=== PATIENT | male | born 1985 | race American Indian/Alaskan Native ===

== ENCOUNTER 2020-06-25 17:37 | Emergency (ER) | payer SELFPAY ==
[2020-06-25] MEDS ORDERED: IBUPROFEN 600 MG TAB PO ONE (19:32)
[2020-06-25] MEDS ORDERED: DIPHtheria,PERTUSSIS(ACELL),TETANUS VACCINE/PF 0.5 ML VIAL IM ONE (19:32)
--- NOTE | 2020-06-25 20:15 | Emergency Department Report ---
- General Chief Complaint: Puncture Wound Stated Complaint: LFT TOE INJURY/PAIN Time Seen by Provider: 06/25/20 19:31 Source: patient Mode of arrival: Ambulatory Limitations: No Limitations - History of Present Illness Initial Comments: 34-year-old -Chadian male presents to the emergency room for foot injury. Patient states that he was at work and stepped on a nail through his work boots. Patient reports he does not know when the last time he had a tetanus injection. Patient states that it bled quite a bit. Patient reports that it is painful when he walks. Denies any other past medical history. -: This afternoon Extremity Location: Left: Foot Place: work Patient Tetanus UTD: No Context: accidental Associated Symptoms: pain Treatments Prior to Arrival: bandage - Related Data Previous Rx's Medication Instructions Recorded Last Taken Type levoFLOXacin [Levaquin TAB] 500 mg PO QDAY #7 tablet 06/25/20 Unknown Rx Allergies Allergy/AdvReac Type Severity Reaction Status Date / Time No Known Allergies Allergy Unverified 06/25/20 17:50 ED Review of Systems ROS: Stated complaint: LFT TOE INJURY/PAIN Other details as noted in HPI Comment: All other systems reviewed and negative ED Past Medical Hx - Past Medical History Previous Medical History?: No - Surgical History Past Surgical History?: No - Medications Home Medications: Home Medications Medication Instructions Recorded Confirmed Last Taken Type levoFLOXacin [Levaquin TAB] 500 mg PO QDAY #7 tablet 06/25/20 Unknown Rx ED Physical Exam - General Limitations: No Limitations General appearance: alert, in no apparent distress - Head Head exam: Present: atraumatic, normocephalic - Eye Eye exam: Present: normal appearance - ENT ENT exam: Present: mucous membranes moist - Neck Neck exam: Present: normal inspection, full ROM - Expanded Lower Extremity Exam Left Knee exam: Present: normal inspection Lower Leg exam: Present: normal inspection Ankle exam: Present: normal inspection Foot/Toe exam: Present: full ROM, tenderness, swelling Neuro vascular tendon exam: Present: no vascular compromise Gait: Positive: observed and limited by pain - Back Exam Back exam: Present: normal inspection - Neurological Exam Neurological exam: Present: alert, oriented X3 - Psychiatric Psychiatric exam: Present: normal affect, normal mood - Skin Skin exam: Present: other (Puncture wound to left foot no active bleeding) ED Course Vital Signs 06/25/20 17:51 Temperature 98.3 F Pulse Rate 78 Respiratory 20 Rate Blood Pressure 151/93 O2 Sat by Pulse 98 Oximetry ED Medical Decision Making - Radiology Data Radiology results: report reviewed [facility] [address] [place] [address] XRay Report Signed Patient: KACIE BONILLA MR#: [id number] : 1985 Acct:[id number] Age/Sex: 34 / M ADM Date: 06/25/20 Loc: ED Attending Dr: Ordering Physician: ELMIRA POWELL Date of Service: 06/25/20 Procedure(s): XR foot 2V LT Accession Number(s): [id number] cc: ELMIRA POWELL Fluoro Time In Minutes: LEFT FOOT 2 VIEW(S) INDICATION / CLINICAL INFORMATION: stepped on nail COMPARISON: None available. FINDINGS: BONES / JOINT(S): No acute fracture or subluxation. No significant arthritis. SOFT TISSUES: Mild diffuse soft tissue swelling throughout the foot. ADDITIONAL FINDINGS: None. Signer Name: Maria Elena Shearer MD Signed: 06/25/2020 8:11 PM Workstation Name: [id number] Transcribed By: Dictated By: MARIA ELENA SHEARER Electronically Authenticated By: MARIA ELENA SHEARER Signed Date/Time: 06/25/202010 DD/ 09 TD/TT: - Medical Decision Making 34-year-old -[place] male presents to the emergency room for foot injury. Patient states that he was at work and stepped on a nail through his work boots. Patient reports he does not know when the last time he had a tetanus injection. Patient states that it bled quite a bit. Patient reports that it is painful when he walks. Denies any other past medical history. X-ray is negative for any acute abnormalities or foreign body. Patient had his foot soaked in Betadine and warm water. Patient was given a tetanus injection patient be Placed on Levaquin. Fresh bandage in his sock work excuse to the paper Critical care attestation.: If time is entered above; I have spent that time in minutes in the direct care of this critically ill patient, excluding procedure time. ED Disposition Clinical Impression: Puncture wound of foot, left Disposition: DC-01 TO HOME OR SELFCARE Is pt being admited?: No Does the pt Need Aspirin: No Condition: Stable Additional Instructions: X-ray negative for any foreign body or acute abnormality. You have had your tetanus shot. I recommend ibuprofen or Tylenol for pain management. Complete your antibiotics as prescribed. And follow-up with your primary care provider if your symptoms persist or gets worse. Prescriptions: levoFLOXacin [Levaquin TAB] 500 mg PO QDAY #7 tablet Referrals: PRIMARY CARE, [Primary Care Provider] - 3-5 Days Forms: Work/School Release Form(ED)
[2020-06-25 20:40] VITALS: BP 147/89
== END 2020-06-25 20:39 | disposition home or self-care (01) ==
LOC: ED 17:37
DX: S91.332A Puncture wound without foreign body, left foot, initial encounter (principal); X58.XXXA Exposure to other specified factors, initial encounter; Y93.89 Activity, other specified; Y92.89 Other specified places as the place of occurrence of the external cause; Y99.8 Other external cause status
CPT/HCPCS: 90471; 90715

== ENCOUNTER 2020-11-22 12:15 | Emergency (ER) | payer SELFPAY ==
[2020-11-22 13:11] VITALS: BP 135/92
--- NOTE | 2020-11-22 15:37 | Event Note ---
ED Screening Note Date of service: 11/22/20 Time: 15:31 ED Screening Note: 35-year-old -[place] male presents to the emergency room complaining of right upper shoulder and back pain that radiates to his right chest wall. Patient states is been going on for about 2 weeks. Patient reports that he has been to 4 different ERs in all of his exams within normal limits. 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 Patient states he is right-hand dominant. Patient states that ibuprofen 800 mg does not help with his pain. Patient denies any past medical history but does report smoking cigarettes and occasionally alcohol. He is currently on no medications and has no known drug allergies. Patient states that he is constantly falling asleep during the day and night. He reports that his job will let him return to work because he keeps falling asleep. It was noted that patient EKG shows bradycardic at a heart rate of 53. Patient was a DNA at 1405 can see the sleep did not hear his name. Patient appears to be unkept with multiple layers of close Patient appears to be very sleepy and drowsy Right eye has hemorrhage of the sclera Right shoulder blade tenderness This initial assessment/diagnostic orders/clinical plan/treatment(s) is/are subject to change based on patients health status, clinical progression and re- assessment by fellow clinical providers in the ED. Further treatment and workup at subsequent clinical providers discretion. Patient/guardian urged not to elope from the ED as their condition may be serious if not clinically assessed and managed. Initial orders include:
[2020-11-22 16:12] LABS: Basophils # (Auto) 0.1 K/mm3 (0.0-0.1); Basophils % (Auto) 0.9 % (0.0-1.8); Eosinophils # (Auto) 0.4 K/mm3 (0.0-0.4); Eosinophils % (Auto) 5.6 % (0.0-4.3); Hematocrit 45.6 % (35.5-45.6); Hemoglobin 15.3 gm/dl (11.8-15.2); Lymphocytes # (Auto) 2.3 K/mm3 (1.2-5.4); Mean Corpuscular HGB Conc 34 % (32-34); Mean Corpuscular Volume 100 fl (84-94); Monocytes # (Auto) 0.6 K/mm3 (0.0-0.8); Monocytes % (Auto) 9.3 % (0.0-7.3); Platelet Count 307 K/mm3 (140-440); Red Blood Count 4.57 M/mm3 (3.65-5.03); Red Cell Distribution Width 13.1 % (13.2-15.2)
--- NOTE | 2020-11-22 16:36 | XRay Report ---
XR chest routine 2V INDICATION / CLINICAL INFORMATION: Right upper chest wall tenderness. COMPARISON: None available. FINDINGS: SUPPORT DEVICES: None. HEART /PULMONARY VASCULATURE: No significant abnormality. LUNGS / PLEURA: No significant pulmonary or pleural abnormality. No pneumothorax. ADDITIONAL FINDINGS: No significant additional findings. IMPRESSION: 1. No acute findings. Signer Name: Samir Santo MD Signed: 11/22/2020 4:32 PM Workstation Name: [id number]
[2020-11-22 16:48] LABS: Alanine Aminotransferase 23 units/L (7-56); Albumin 3.7 g/dL (3.9-5); BUN/Creatinine Ratio 11; Blood Urea Nitrogen 12 mg/dL (9-20); Calcium 8.3 mg/dL (8.4-10.2); Hemolysis Index 13
--- NOTE | 2020-11-22 18:31 | Emergency Department Report ---
ED General Adult HPI - General Chief complaint: Chest Pain Stated complaint: CHEST PAINS PUI?: No Source: patient Mode of arrival: Ambulatory Limitations: No Limitations - History of Present Illness Initial comments: 35-year-old -Serbian male presents to the emergency room complaining of right upper shoulder and back pain that radiates to his right chest wall. Patient states is been going on for about 2 weeks. Patient reports that he has been to 4 different ERs in all of his exams within normal limits. 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 Patient states he is right-hand dominant. Patient states that ibuprofen 800 mg does not help with his pain. Patient denies any past medical history but does report smoking cigarettes and occasionally alcohol. He is currently on no medications and has no known drug allergies. Patient states that he is constantly falling asleep during the day and night. He reports that his job will let him return to work because he keeps falling asleep. It was noted that patient EKG shows bradycardic at a heart rate of 53. Onset/Timin -: week(s) Location: chest (Right chest), upper extremity (Right shoulder and shoulder blade) Quality: sharp Consistency: intermittent Improves with: none Worsens with: movement Associated Symptoms: cough Treatments Prior to Arrival: none - Related Data Previous Rx's Medication Instructions Recorded Last Taken Type levoFLOXacin [Levaquin TAB] 500 mg PO QDAY #7 tablet 06/25/20 Unknown Rx Allergies Allergy/AdvReac Type Severity Reaction Status Date / Time No Known Allergies Allergy Unverified 06/25/20 17:50 ED Review of Systems ROS: Stated complaint: CHEST PAINS Other details as noted in HPI Comment: All other systems reviewed and negative ED Past Medical Hx - Past Medical History Previous Medical History?: No - Social History Smoking Status: Current Every Day Smoker Substance Use Type: None - Medications Home Medications: Home Medications Medication Instructions Recorded Confirmed Last Taken Type levoFLOXacin [Levaquin TAB] 500 mg PO QDAY #7 tablet 06/25/20 Unknown Rx ED Physical Exam - General Limitations: No Limitations General appearance: alert, other (Unkept) - Head Head exam: Present: atraumatic, normocephalic - Eye Eye exam: Present: normal appearance - Expanded Eye Exam Expanded Sclera/Conjunctival: Hemorrhage: Right - ENT ENT exam: Present: normal exam, normal external ear exam - Neck Neck exam: Present: normal inspection, full ROM - Respiratory Respiratory exam: Present: normal lung sounds bilaterally, chest wall tenderness (Right chest). Absent: respiratory distress, accessory muscle use - Cardiovascular Cardiovascular Exam: Present: regular rate - GI/Abdominal GI/Abdominal exam: Present: soft. Absent: distended, tenderness, guarding - Expanded Upper Extremity Exam Right Shoulder Exam: Present: full ROM, tenderness. Absent: swelling, abrasion Upper Arm exam: Present: normal inspection, full ROM Elbow exam: Present: normal inspection, full ROM Forearm Wrist exam: Present: normal inspection, full ROM Hand Wrist exam: Present: normal inspection, full ROM Vascular: Present: normal capillary refill - Back Exam Back exam: Present: full ROM, tenderness (Right shoulder blade) - Neurological Exam Neurological exam: Present: alert, oriented X3, normal gait, other (Keeps falling asleep) - Psychiatric Psychiatric exam: Present: normal affect, normal mood - Skin Skin exam: Present: warm, dry, intact, normal color. Absent: rash ED Course Vital Signs 11/22/20 13:05 Temperature 97.8 F Pulse Rate 64 Respiratory 18 Rate Blood Pressure 135/92 O2 Sat by Pulse 97 Oximetry ED Medical Decision Making - Lab Data Result diagrams: 11/22/20 15:54 11/22/20 15:54 - Radiology Data Radiology results: report reviewed 35-year-old -Serbian male presents to the emergency room complaining of right upper shoulder and back pain that radiates to his right chest wall. Patient states is been going on for about 2 weeks. Patient reports that he has been to 4 different ERs in all of his exams within normal limits. 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 Patient states he is right-hand dominant. Patient states that ibuprofen 800 mg does not help with his pain. Patient denies any past medical history but does report smoking cigarettes and occasionally alcohol. He is currently on no medications and has no known drug allergies. Patient states that he is constantly falling asleep during the day and night. He reports that his job will let him return to work because he keeps falling asleep. It was noted that patient EKG shows bradycardic at a heart rate of 53. Chest x-ray is negative labs are stable - Medical Decision Making 35-year-old -Serbian male presents to the emergency room complaining of right upper shoulder and back pain that radiates to his right chest wall. Patient states is been going on for about 2 weeks. Patient reports that he has been to 4 different ERs in all of his exams within normal limits. 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 Patient states he is right-hand dominant. Patient states that ibuprofen 800 mg does not help with his pain. Patient denies any past medical history but does report smoking cigarettes and occasionally alcohol. He is currently on no medications and has no known drug allergies. Patient states that he is constantly falling asleep during the day and night. He reports that his job will let him return to work because he keeps falling asleep. It was noted that patient EKG shows bradycardic at a heart rate of 53. Work-up is negative for any acute findings. Recommend to follow-up with a [facility] care provider and a laundry housekeeping aide if he has any further concerns. Continue with the ibuprofen. Critical care attestation.: If time is entered above; I have spent that time in minutes in the direct care of this critically ill patient, excluding procedure time. ED Disposition Clinical Impression: Chest wall tenderness Right shoulder pain Qualifiers: Chronicity: unspecified Qualified Code(s): M25.511 - Pain in right shoulder Disposition: DC-01 TO HOME OR SELFCARE Is pt being admited?: No Does the pt Need Aspirin: No Condition: Stable Instructions: Nonspecific Chest Pain, Adult, [id number], Shoulder Pain, [id number] Additional Instructions: Labs are within normal limits chest x-ray is within normal limits. Recommend ibuprofen and to follow-up with a primary care provider. He can also follow-up with a laundry housekeeping aide. I feel that this is more musculoskeletal and with repetitive movement can cause pain. Referrals: PRIMARY CARE [Primary Care Provider] - 3-5 Days [facility] [Provider Group] - 3-5 Days Forms: Work/School Release Form(ED)
--- NOTE | 2020-11-25 10:34 | Electrocardiograph Report ---
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
== END 2020-11-22 20:15 | disposition home or self-care (01) ==
LOC: ED 12:15
DX: M25.511 Pain in right shoulder (principal); F17.200 Nicotine dependence, unspecified, uncomplicated; Z79.899 Other long term (current) drug therapy
CPT/HCPCS: 36415; 71046; 80053; 84484; 85025; 93005; 99283